=== PATIENT | female | born 1980 | race Caucasian/White ===

== ENCOUNTER 2021-06-10 09:47 | Emergency (ER) | payer OTHER, SELFPAY ==
[2021-06-10 09:50] VITALS: BP 114/85; PULSE 98; RESP 16; TEMP 36.4; O2SAT 100; BMI 34.4
--- NOTE | 2021-06-10 10:42 | CT_ITS ---
STUDY: CT CERVICAL SPINE WITHOUT CONTRAST REASON FOR EXAM: Female, 40 years old. Injury/Pain RADIATION DOSAGE (If Supplied By Facility): CTDIvol = ( 18.49 ) mGy, DLP = ( 395.40 ) mGycm TECHNIQUE: High resolution transaxial imaging was performed without contrast material. Sagittal and coronal images were reconstructed. Individualized dose optimization techniques were used for this CT. COMPARISON: None FINDINGS: Normal craniovertebral junction. Normal anterior atlantoaxial articulation. Normal odontoid process. There is straightening of the normal cervical lordosis. Normal vertebral bodies and posterior osseous elements. C2-3: Normal endplates. Normal disc height and morphology. Normal central canal and intervertebral neuroforamina. C3-4: Normal endplates. Normal disc height and morphology. Normal central canal and intervertebral neuroforamina. C4-5: Normal endplates. Normal disc height and morphology. Normal central canal and intervertebral neuroforamina. C5-6: Normal endplates. Normal disc height and morphology. Normal central canal and intervertebral neuroforamina. C6-7: Normal endplates. Normal disc height and morphology. Normal central canal and intervertebral neuroforamina. C7-T1: Normal endplates. Normal disc height and morphology. Normal central canal and intervertebral neuroforamina. Normal visualized soft tissue structures. CT/Spine Cervical without Contras IMPRESSION: Normal unenhanced CT examination of the cervical spine. Electronically Signed: Howard Delong MD at 11:08 EST ,
--- NOTE | 2021-06-10 10:42 | CT_ITS ---
STUDY: CT BRAIN WITHOUT CONTRAST REASON FOR EXAM: Female, 40 years old. Head injury due to a fall. RADIATION DOSAGE (If Supplied By Facility): CTDIvol = ( 47.06 ) mGy, DLP = ( 872.68 ) mGycm TECHNIQUE: Transaxial CT imaging of the brain was performed without administration of intravenous contrast material. Individualized dose optimization techniques were used for this CT. COMPARISON: No relevant priors. FINDINGS: Normal soft tissue structures. Normal calvarium. Normal size ventricles and extra-axial spaces for the patient''s age. Normal white matter tracts of the cerebral hemispheres. Normal basal ganglia and thalami. Normal brainstem. Normal cerebellum. There is no intracranial hemorrhage. There are no findings of an acute ischemic infarction. Normal visualized paranasal sinuses. CT/Brain/Head without Contrast IMPRESSION: Normal unenhanced CT scan of the brain. Electronically Signed: Howard Delong MD at 11:07 EST ,
--- NOTE | 2021-06-10 12:43 | EDS_ITS ---
HPI History of Present Illness Chief Complaint: Fall Informant: patient Onset/Context/Timing Onset: Yesterday Mechanism/Context: Fall and Slip Quality of Pain: Aching Location: Occiput and cervical spine Worsened by: Nothing Relieved by: Heating pad Associated Symptoms Associated Symptoms: Negative for Parasthesias, Weakness, Loss of function, Inability to ambulate, Loss of consciousness and Amnesia Narrative Narrative: Patient presents with slip and fall that occurred yesterday. Patient states she fell backwards and hit the back of her head. Patient states her pain is worse today. Patient states she has pain in her head, neck, and upper back. Patient describes the pain as aching. Patient states it was better with a heating pad last night. Patient denies any paresthesias or weakness. Patient denies any loss of consciousness. Patient denies any lacerations. Patient denies any other injuries. PFSH PFS Medical History (Updated 06/10/21 @ 17:[address] Betito Yeboah DO) Mitral valve prolapse Medical History no medical history Home Medications biotin 1 mg PO DAILY 06/10/21 [History Last Taken Unknown] multivitamin 1 tab PO DAILY 06/10/21 [History Last Taken Unknown] Allergy/AdvReac Type Severity Reaction Status Date / Time DECONGESTANTS AdvReac Nausea Uncoded 06/10/21 09:49 Surgical History (Updated 06/10/21 @ 17:[address] Betito Yeboah DO) Hx of tubal ligation Surgical History no surgical history Social History Smoking Status: Never smoker ROS ROS ED Constitutional Constitutional ED: Denies chills or fever(s) Eyes Eyes: Denies blurry vision or change in vision ENT ENT ED: Denies rhinorrhea or sore throat Cardiovascular Cardiovascular: Denies chest pain or palpitations Respiratory/Chest Respiratory/Chest: Denies cough or dyspnea Gastrointestinal Gastrointestinal: Denies nausea or vomiting Genitourinary Genitourinary ED: Denies dysuria or hematuria Musculoskeletal Musculoskeletal: Reports back pain and neck pain Integumentary Denies abscess or rash Neurologic Neurologic: Reports headache(s); Denies weakness Allergic/Immunologic Allergic/Immunologic ED: Denies mouth swelling or urticaria EXAM Physical Exam Const Vital Signs: 06/10/21 09:50 06/10/21 12:51 Temperature 97.5 F L Temperature Source Temporal Pulse Rate 98 83 Respiratory Rate 16 20 H Respiratory Effort Normal Respiratory Depth Normal Respiratory Pattern Normal Blood Pressure 114/85 H 129/78 H Blood Pressure Mean 94 Pulse Ox 100 98 Oxygen Delivery Method Room Air Positive well nourished and well developed General Appearance ED: well developed and NAD HEENT HEENT Narrative: There is tenderness over the occiput. tenderness Neck full ROM Neck Narrative: There is tenderness over the cervical spine and paraspinal muscles. There is no edema or ecchymosis. There is no bony crepitance or step- off. There is good range of motion. General: tenderness Extremity normal to inspection and full ROM Neuro oriented x3, CN's II-XII intact bilaterally, moves all extremities, no focal motor deficits and no sensory deficits noted [place] Coma Scale: document GCS findings Spontaneous Obeys Commands Oriented 15 Sensorium / Orientation: alert Psych mental status grossly normal MDM MDM MDM Narrative Medical decision making narrative: CT scan of the brain was obtained. There is no acute intracranial abnormality noted. This was interpreted by the radiologist and reviewed by myself. CT scan of the cervical spine was obtained. There is no acute fracture or spondylolisthesis. There is no soft tissue swelling. This was also interpreted by the radiologist and reviewed by myself. Patient was advised of her findings. Patient was instructed to use ice to the area. Patient was instructed to take Tylenol or ibuprofen as needed for pain. Patient was also given head injury instructions. Patient was instructed to follow-up with her primary care physician in 5 to 7 days. Patient understood and was agreeable with the plan. All questions were answered. Radiography Diagnostic Testing: Clinical Impression(s) from Imaging Studies Brain CT 06/10/21 10:42 IMPRESSION: Normal unenhanced CT scan of the brain. Electronically Signed: Howard Delong MD at 11:07 EST , Cervical Spine CT 06/10/21 10:42 IMPRESSION: Normal unenhanced CT examination of the cervical spine. Electronically Signed: Howard Delong MD at 11:08 EST , Discharge Plan Triage Chief Complaint: Fall ED Provider: Betito Yeboah Dx/Rx/DC Orders Clinical Impression: Concussion Instructions: ED Concussion Prescriptions: No Action multivitamin Tablet 1 tab PO DAILY RF: 0 biotin 1 mg Tablet 1 mg PO DAILY RF: 0 Primary Care Provider: Dudley Espinoza Referrals: Dudley Espinoza MD [Primary Care Provider] - 3-5 Days Disposition Disposition: Home, Self Care Discharge Date/Time: 06/10/21 12:53
[2021-06-10 12:51] VITALS: BP 129/78; PULSE 83; RESP 20; O2SAT 98
--- NOTE | 2021-06-10 12:51 | ED.RN ---
THIS NURSE REVIEWED D/C INSTRUCTIONS WITH PT AND VISITOR. PT VERBALIZED UNDERSTANDING OF INSTRUCTIONS. PT DENIES FURTHER NEEDS OR QUESTIONS AT THIS TIME. PT AMBULATES FROM ROOM ON OWN WITHOUT ASSISTANCE FROM STAFF
== END 2021-06-10 12:53 | disposition home or self-care (01) ==
PROVIDERS: Emergency Provider Emergency Medicine; PCP Family Medicine; Visit Provider Emergency Medicine
DX: S06.0X0A Concussion without loss of consciousness, initial encounter (principal); W01.0XXA Fall on same level from slipping, tripping and stumbling without subsequent striking against object, initial encounter
CPT/HCPCS: 70450; 72125; 99282

== ENCOUNTER 2021-07-04 10:31 | Emergency (ER) | payer OTHER, SELFPAY ==
[2021-07-04 10:31] VITALS: BP 125/82; PULSE 115; RESP 18; TEMP 36.1; O2SAT 96; BMI 34.9
--- NOTE | 2021-07-04 11:19 | EX.ED.DYSGE1 ---
HPI History of Present Illness Chief Complaint: Dizziness Detail of Chief Complaint: Dizziness, nausea, ears popping, neck pain and headache S-P trauma Informant: patient Onset/Context/Timing Onset: Month(s) (Approximately 1 month ago) Context: Sudden Onset Timing: Continuous and Waxes and wanes Quality: Postconcussive syndrome Location: Head, neck and neurologic Current Severity: Mild Maximum Severity: Moderate Worsened by: Nothing Relieved by: Nothing Associated Symptoms Associated Symptoms: Per HPI Narrative Narrative: Patient is a 40-year-old woman who had a traumatic head injury 1 month ago when she fell backward striking the back of her head. She had a CT performed at that time which was unremarkable. She also has CT of her neck which was unremarkable. She presents because her symptoms have not gotten better. They do wax and wane in their intensity and severity. She does report intermittent photophobia and intermittent sonophobia. She denies double vision, blurred vision or loss of vision. She denies ringing or ears. She does have popping in her ears. She denies decreased hearing. She denies drainage from her ears. She does report occasional popping in her neck and persistent pain since the fall. She denies paresthesia, anesthesia or motor weakness. She denies cardiac respiratory symptoms. She denies vomiting or diarrhea. She denies urologic symptoms. She cannot say specifically what does or does not make her symptoms worse. Prior similar symptoms: Yes Recent Illness/Hospitalization: Yes [facility] Medical History (Updated 07/04/21 @ 11:[address] Demetrius Campbell MD) Mitral valve prolapse Home Medications biotin 1 mg PO DAILY 06/10/21 [History Last Taken Unknown] multivitamin 1 tab PO DAILY 06/10/21 [History Last Taken Unknown] meclizine 25 mg PO 4X/DAY PRN PRN #20 tab 07/04/21 [Rx Last Taken Unknown] tizanidine 4 mg PO PRN PRN 07/04/21 [History Last Taken Unknown] Allergy/AdvReac Type Severity Reaction Status Date / Time DECONGESTANTS AdvReac Nausea Uncoded 07/04/21 11:24 Surgical History Hx of tubal ligation Social History household members: significant other Smoking Status: Never smoker substance use type: does not use ROS ROS ED Constitutional Constitutional ED: Denies chills, fever(s), subjective, sweats or weight loss Eyes Eyes: Reports other Details: Photophobia ; Denies blurry vision, change in vision or diplopia ENT ENT ED: Reports other Details: Per HPIPer HPI ; Denies ear pain, rhinorrhea or sore throat Cardiovascular Cardiovascular: Denies chest pain or palpitations Respiratory/Chest Respiratory/Chest: Denies cough, dyspnea or dyspnea on exertion Gastrointestinal Gastrointestinal: Denies abdominal pain, diarrhea or vomiting Genitourinary Genitourinary ED: Denies dysuria, hematuria or urinary frequency Musculoskeletal Musculoskeletal: Reports neck pain; Denies arthralgias, back pain or myalgias Integumentary Denies rash Neurologic Neurologic: Reports headache(s); Denies paresthesias or weakness EXAM Physical Exam Const Vital Signs: 07/04/21 10:31 Temperature 97 F L Temperature Source Temporal Pulse Rate 115 H Respiratory Rate 18 Blood Pressure 125/82 H Blood Pressure Mean 96 Pulse Ox 96 Oxygen Delivery Method Room Air Positive well nourished, well developed and obese General Appearance ED: well developed and NAD; Negative for pallor Nutritional Appearance: obese HEENT Reports TM's clear and moist mucous membranes HEENT Narrative: Nares pale. No septal deviation hematoma. There is no hemotympanum. There is no clinical findings of basilar skull fracture. Negative for trauma or tenderness Tympanic Membrane ED: Yes TM's clear Eyes PERRL and EOMs intact bilaterally Eyes Narrative: There is no subconjunctival hemorrhage noted. There is no nystagmus. Cup-to-disc ratio normal. There is no papilledema. General Eye ED: Negative for pale conjunctiva or scleral icterus Neck no lymphadenopathy, supple and no JVD General: tenderness Resp normal respiratory effort and clear to auscultation bilaterally Cardio regular rate, regular rhythm, S1 normal heart sound, S2 normal heart sound and no murmurs GI normal to inspection, nondistended, normoactive bowel sounds Back/Spine no CVA tenderness Cervical Spine: cervical spine tenderness Neuro oriented x3, CN's II-XII intact bilaterally and no sensory deficits noted Neuro Narrative: There is no clonus or Babinski sign. DTRs are 2+, bicep, brachialis, tricep, patella and ankle. There is no asymmetry. There is no dysmetria. Sensorium / Orientation: alert Motor Exam: strength 5/5 throughout Psych mental status grossly normal Skin no rashes or lesions noted and no wounds General Skin Exam: Negative for jaundice or pallor MDM MDM MDM Narrative Medical decision making narrative: Patient has postconcussive symptoms. Patient was not informed to keep a diary to determine what makes her symptoms worse. She should avoid those activities. She was prescribed meclizine for her dizziness. Discharge Plan Triage Chief Complaint: Dizziness ED Provider: Demetrius Campbell Dx/Rx/DC Orders Clinical Impression: Postconcussive syndrome Instructions: Coping with Concussion Prescriptions: New meclizine [meclizine] 25 MG tablet 25 mg PO 4X/DAY PRN PRN (Reason: Dizziness) Qty: 20 RF: 0 No Action multivitamin Tablet 1 tab PO DAILY RF: 0 biotin 1 mg Tablet 1 mg PO DAILY RF: 0 tizanidine 4 mg tablet 4 mg PO PRN PRN (Reason: neck pain) RF: 0 Primary Care Provider: Dudley Espinoza Referrals: Dudley Espinoza MD [Primary Care Provider] - 1 Week Activity Restrictions/Additional Instructions: You should keep a diary and write down what activity or activities make your symptoms worse and avoid those activities. Disposition Disposition: Home, Self Care
== END 2021-07-04 11:45 | disposition home or self-care (01) ==
LOC: ED 11:26
PROVIDERS: Emergency Provider Emergency Medicine; PCP Family Medicine; Visit Provider Emergency Medicine
DX: F07.81 Postconcussional syndrome (principal); G44.309 Post-traumatic headache, unspecified, not intractable
CPT/HCPCS: 99282